=== PATIENT | female | born 1990 ===

== ENCOUNTER 2019-12-25 19:14 | Inpatient (IN) | payer BC ==
[2019-12-25] MEDS ORDERED: Misoprostol 200 MCG Tab PO PRN (22:19)
[2019-12-25] MEDS ORDERED: Sodium Chloride 0.9% 10 ML SDV IV PRN (22:19)
[2019-12-25] MEDS ORDERED: Water For Irrigation,Sterile 1,000 ML Container IRR PRN (22:19)
[2019-12-25] MEDS ORDERED: Nalbuphine 10 MG/1 ML Vial IVPUSH PRN (22:19)
[2019-12-25] MEDS ORDERED: Sodium Chloride 0.9% 10 ML Syringe FLUSH PRN (22:19)
[2019-12-25] MEDS ORDERED: Tranexamic Acid 1,000 MG in Sodium Chloride 0.9% 100 ML IV PRN (22:19)
[2019-12-25] MEDS ORDERED: Lidocaine 1% 50 ML MDV INJECT PRN (22:19)
[2019-12-25] MEDS ORDERED: Butorphanol 1 MG/ML SDV IVPUSH PRN (22:19)
[2019-12-25] MEDS ORDERED: Methylergonovine 0.2 MG/1 ML Amp IM PRN (22:19)
[2019-12-25] MEDS ORDERED: Sodium Chloride 0.9% 2.5 ML Syringe FLUSH PRN (22:19)
[2019-12-25] MEDS ORDERED: Carboprost Tromethamine 250 MCG/1 ML Amp IM PRN (22:19)
[2019-12-25] MEDS ORDERED: Oxytocin/0.9 % Sodium Chloride 30 UNIT/500 ML BAG IV SCH ×2 (22:30→23:30)
[2019-12-25] MEDS ORDERED: Ampicillin 2 GM in Sodium Chloride 0.9% 100 ML IV ONE (23:00)
[2019-12-25] MEDS ORDERED: Terbutaline 1 MG/ML SDV SUBCUT PRN (23:24)
[2019-12-25] MEDS ORDERED: Misoprostol 25 MCG (1/4 of 100 MCG) Tab VAG PRN (23:24)
[2019-12-25] MEDS: Lactated Ringers 1,000 ML IV SCH (23:39)
[2019-12-25 23:51] LABS: BLOOD UREA NITROGEN,BUN 7 mg/dL (7.0-18.0); CARBON DIOXIDE,CO2 19.9 mmol/L (21.0-32.0); CHLORIDE,CL 105 mmol/L (98-107); GLUCOSE RANDOM 84 mg/dL (74-106); SODIUM,NA 139 mmol/L (136-145)
[2019-12-26] MEDS: Ampicillin 1 GM in Sodium Chloride 0.9% 50 ML IV SCH ×4 (03:19→16:33)
[2019-12-26] MEDS: Misoprostol 25 MCG (1/4 of 100 MCG) Tab VAG PRN ×2 (03:20→07:20)
[2019-12-26] MEDS ORDERED: fentaNYL 100 MCG/2 ML SDV ONE (11:40)
[2019-12-26] MEDS ORDERED: Ropivacaine HCl/PF 100 ML ONE (11:41)
[2019-12-26] MEDS ORDERED: Ropivacaine 0.2% PF 2 MG/ML 20 ML SDV ONE (11:41)
[2019-12-26] MEDS: Lactated Ringers 1,000 ML IV SCH ×2 (12:16→18:58)
--- NOTE | 2019-12-26 12:40 | PCM.PREANE ---
Preanesthetic Assessment - Procedure Proposed Procedure: GYPSY - Anesthesia/Transfusion/Family Hx Anesthesia History: Prior Anesthesia Without Reaction Family History of Anesthesia Reaction: No Transfusion History: No Prior Transfusion(s) Intubation History: Intubation other than for Surgery in past - Review of Systems General: No Symptoms Pulmonary: No Symptoms Cardiovascular: No Symptoms, Other (HTN , on Labetalol Pre-op 162/98) Gastrointestinal: No Symptoms Neurological: No Symptoms Other: Reports: None - Physical Assessment NPO Status Date: 12/26/19 NPO Status Time: 12:00 Height: 1.7 m Weight: 106.594 kg ASA Class: 3 Mental Status: Alert & Oriented x3 Airway Class: Mallampati = 2 Dentition: Reports: Normal Dentition Thyro-Mental Finger Breadths: 3 Mouth Opening Finger Breadths: 3 ROM/Head Extension: Full Lungs: Clear to Auscultation Cardiovascular: Regular Rate - Lab Values: Laboratory Last Values WBC 10.67 K/uL (4.0-11.0) 12/25/19 23:00 RBC 3.96 M/uL (4.30-5.90) L 12/25/19 23:00 Hgb 12.3 g/dL (12.0-16.0) 12/25/19 23:00 Hct 35.3 % (36.0-46.0) L 12/25/19 23:00 MCV 89.1 fL (80.0-98.0) 12/25/19 23:00 MCH 31.1 pg (27.0-32.0) 12/25/19 23:00 MCHC 34.8 g/dL (31.0-37.0) 12/25/19 23:00 RDW Std Deviation 41.6 fl (28.0-62.0) 12/25/19 23:00 RDW Coeff of Sierra 13 % (11.0-15.0) 12/25/19 23:00 Plt Count 198 K/uL (150-400) 12/25/19 23:00 MPV 11.80 fL (7.40-12.00) 12/25/19 23:00 Nucleated RBC % 0.0 /100WBC 12/25/19 23:00 Nucleated RBCs # 0 K/uL 12/25/19 23:00 Sodium 139 mmol/L (136-145) 12/25/19 23:00 Potassium 4.0 mmol/L (3.5-5.1) 12/25/19 23:00 Chloride 105 mmol/L (98-107) 12/25/19 23:00 Carbon Dioxide 19.9 mmol/L (21.0-32.0) L 12/25/19 23:00 BUN 7 mg/dL (7.0-18.0) 12/25/19 23:00 Creatinine 0.4 mg/dL (0.6-1.0) L 12/25/19 23:00 Est Cr Clr Drug Dosing 205.44 mL/min 12/25/19 23:00 Estimated GFR (MDRD) > 60.0 ml/min 12/25/19 23:00 Glucose 84 mg/dL (74-106) 12/25/19 23:00 Calcium 8.7 mg/dL (8.5-10.1) 12/25/19 23:00 Total Bilirubin 0.8 mg/dL (0.2-1.0) 12/25/19 23:00 AST 11 IU/L (15-37) L 12/25/19 23:00 ALT 15 IU/L (14-63) 12/25/19 23:00 Alkaline Phosphatase 150 U/L (46-116) H 12/25/19 23:00 Total Protein 6.1 g/dL (6.4-8.2) L 12/25/19 23:00 Albumin 3.1 g/dL (3.4-5.0) L 12/25/19 23:00 Globulin 3.0 g/dL (2.6-4.0) 12/25/19 23:00 Albumin/Globulin Ratio 1.0 (0.9-1.6) 12/25/19 23:00 Ur Random Creatinine 61.4 mg/dL 12/25/19 22:45 U Random Total Protein 9.0 mg/dL (<11.9) 12/25/19 22:45 Protein/Creatinin Ratio 0.1 12/25/19 22:45 COVID-19 (MARYJANE) NEGATIVE (NEGATIVE) 12/25/19 23:05 Blood Type A POSITIVE 12/25/19 23:00 Antibody Screen NEGATIVE 12/25/19 23:00 - Allergies Allergies/Adverse Reactions: Allergies Allergy/AdvReac Type Severity Reaction Status Date / Time morphine Allergy Intermediate Other Verified 10/25/19 12:04 hydromorphone [From Dilaudid] Allergy Other Verified 11/26/19 17:22 - Blood Blood Available: No Product(s) Available: None - Anesthesia Plan Pre-Op Medication Ordered: None - Acknowledgements Anesthesia Type Planned: Epidural Pt an Appropriate Candidate for the Planned Anesthesia: Yes Alternatives and Risks of Anesthesia Discussed w Pt/Guardian: Yes Pt/Guardian Understands and Agrees with Anesthesia Plan: Yes Additional Comments: Active labor, 3 cm dilated, pain 3/10. Will start pitocin after GYPSY. BP 162/98. Discussed, ? answered, permit signed, wishes to proceed. PreAnesthesia Questionnaire Gastrointestinal History: Reports: None [employer]OUNT[employer] History: Reports: Polycystic Ovaries, - Past Surgical History GI Surgical History: Reports: Other (See Below) Other GI Surgeries/Procedures: Gastric by-pass 2017 - SUBSTANCE USE Smoking Status *Q: Never Smoker Second Hand Smoke Exposure: No Recreational Drug Use History: No - HOME MEDS Home Medications: Home Meds Ascorbic Acid [Vitamin C] 1 tab PO DAILY 10/25/19 [History] Aspirin [Baron Chewable Aspirin] 81 mg PO DAILY 10/25/19 [History] Calcium Carbonate [Calcium] 1 tab PO DAILY 10/25/19 [History] Ferrous Sulfate [Iron] 325 mg PO DAILY 10/25/19 [History] Vit No.124/Iron/Folic [ Vitamin Tablet] 1 tab PO DAILY 10/25/19 [History] Hydrocodone/Acetaminophen [[place] 5-325 Tablet] 1 each PO Q6H PRN #10 tablet 11/26/19 [Rx] Labetalol [Normodyne] 1 tab PO BID 11/26/19 [History] Ondansetron [Zofran ODT] 4 mg PO Q6H PRN #20 tab.dis 11/26/19 [Rx] - CURRENT (IN HOUSE) MEDS Current Meds: Current Medications Butorphanol Tartrate (Stadol) 1 mg IVPUSH Q1H PRN PRN Reason: Pain Carboprost Tromethamine (Hemabate Ds) 250 mcg IM ASDIRECTED PRN PRN Reason: Post Hemorrhage Oxytocin/Sodium Chloride (Oxytocin 30 Unit/500 Ml-Ns) 30 unit in 500 mls @ 500 mls/hr IV TITRATE [facility] Tranexamic Acid 1,000 mg/ (Sodium Chloride) 110 mls @ 660 mls/hr IV ONETIME PRN PRN Reason: Bleeding Lactated Ringer's (Ringers, Lactated) 1,000 mls @ 150 mls/hr IV ASDIRECTED [facility] Last Admin: 12/26/19 12:16 Dose: 500 mls/hr Documented by: Oxytocin/Sodium Chloride (Oxytocin 30 Unit/500 Ml-Ns) 30 unit in 500 mls @ 2 mls/hr IV TITRATE [facility]; Protocol Ampicillin Sodium 1 gm/ Sodium (Chloride) 50 mls @ 100 mls/hr IV Q4H [facility] Last Admin: 12/26/19 12:22 Dose: 100 mls/hr Documented by: Lidocaine HCl (Xylocaine 1%) 50 ml INJECT ONETIME PRN PRN Reason: Laceration repair Methylergonovine Maleate (Methergine) 0.2 mg IM ASDIRECTED PRN PRN Reason: Post Hemorrhage Misoprostol (Cytotec) 200 mcg PO ONETIME PRN PRN Reason: Post Hemorrhage Misoprostol (Cytotec) 25 mcg VAG ONETIME PRN PRN Reason: Cervical Ripening Last Admin: 12/25/19 23:40 Dose: 25 mcg Documented by: Misoprostol (Cytotec) 25 mcg VAG Q4H PRN PRN Reason: Cervical Ripening Last Admin: 12/26/19 07:20 Dose: 25 mcg Documented by: Nalbuphine HCl (Nubain) 10 mg IVPUSH Q1H PRN PRN Reason: Pain (severe 7-10) Sodium Chloride (Saline Flush) 10 ml FLUSH ASDIRECTED PRN PRN Reason: Keep Vein Open Sodium Chloride (Saline Flush) 2.5 ml FLUSH ASDIRECTED PRN PRN Reason: Keep Vein Open Sodium Chloride (Normal Saline) 10 ml IV ASDIRECTED PRN PRN Reason: IV Use Sterile Water (Sterile Water For Irrigation) 1,000 ml IRR ASDIRECTED PRN PRN Reason: delivery Terbutaline Sulfate (Brethine) 0.25 mg SUBCUT ASDIRECTED PRN PRN Reason: Tacysystole Discontinued Medications Fentanyl (Sublimaze) Confirm Administered Dose 100 mcg .ROUTE .STK-MED ONE Stop: 12/26/19 11:41 Ampicillin Sodium 2 gm/ Sodium (Chloride) 100 mls @ 200 mls/hr IV ONETIME ONE Stop: 12/25/19 23:29 Last Admin: 12/25/19 23:39 Dose: 200 mls/hr Documented by: Ropivacaine (Naropin 0.2%) Confirm Administered Dose 100 mls @ as directed .ROUTE .STK-MED ONE Stop: 12/26/19 11:42 Ropivacaine (Naropin 0.2%) Confirm Administered Dose 20 ml .ROUTE .STK-MED ONE Stop: 12/26/19 11:42
[2019-12-26] MEDS ORDERED: Lanolin 100% Cream 7 GM Tube TOP PRN (19:46)
[2019-12-26] MEDS ORDERED: Ibuprofen 800 MG Tab PO PRN (19:46)
[2019-12-26] MEDS ORDERED: Benzocaine/Menthol 20%-0.5% Spray 78 GM Cannister TOP PRN (19:46)
[2019-12-26] MEDS ORDERED: Witch Hazel Medicated Pads 40/Jar TOP PRN (19:46)
[2019-12-26] MEDS ORDERED: Docusate Sodium 100 MG Cap PO PRN (19:46)
[2019-12-26] MEDS ORDERED: oxyCODONE 5 MG Tab PO PRN (19:46)
[2019-12-26] MEDS ORDERED: Bisacodyl 10 MG Supp RECTAL PRN (19:46)
--- NOTE | 2019-12-26 19:50 | PCM.DEL ---
<Donovan Conklin - Last Filed: 12/26/19 19:42> L & D Note - General Info Date of Service: 12/26/19 - Delivery Note Labor: Augmented by ARM, Augmented by Oxytocin Cervical Ripening Method: Misoprostil Delivery Outcome: Livebirth Delivery Method: Spontaneous Vaginal Delivery-Single Delivery Mode: Spontaneous Presentation: Left Occiput Anterior (JACK) Nuchal Cord: None Anesthesia Type: Epidural Episiotomy Type: None Laceration: 2nd Degree Suture type: Vicryl Suture size: 2-0 Placenta: Intact, Spontaneous Cord: 3 Vessels Estimated Blood Loss: 500 Resuscitation Needed: No : Bulb Syringe, Stimulated, Warmed, [place] Used, Warmer Used Score 1 min: 8 Score 5 min: 9 Delivery Comments (Free Text/Narrative):: Liveborn male born at 1912, weighing 3360, apgars 8 and 9 - General Info Date of Service: 12/26/19 - Patient Data Weight - Most Recent: 106.594 kg Lab Results Last 24 Hours: Laboratory Results - last 24 hr 12/25/19 12/25/19 12/25/19 Range/Units 22:45 23:00 23:00 WBC 10.67 (4.0-11.0) K/uL RBC 3.96 L (4.30-5.90) M/uL Hgb 12.3 (12.0-16.0) g/dL Hct 35.3 L (36.0-46.0) % MCV 89.1 (80.0-98.0) fL MCH 31.1 (27.0-32.0) pg MCHC 34.8 (31.0-37.0) g/dL RDW Std Deviation 41.6 (28.0-62.0) fl RDW Coeff of [place] 13 (11.0-15.0) % Plt Count 198 (150-400) K/uL MPV 11.80 (7.40-12.00) fL Nucleated RBC % 0.0 /100WBC Nucleated RBCs # 0 K/uL Sodium 139 (136-145) mmol/L Potassium 4.0 (3.5-5.1) mmol/L Chloride 105 (98-107) mmol/L Carbon Dioxide 19.9 L (21.0-32.0) mmol/L BUN 7 (7.0-18.0) mg/dL Creatinine 0.4 L (0.6-1.0) mg/dL Est Cr Clr Drug Dosing 205.44 mL/min Estimated GFR (MDRD) > 60.0 ml/min Glucose 84 (74-106) mg/dL Calcium 8.7 (8.5-10.1) mg/dL Total Bilirubin 0.8 (0.2-1.0) mg/dL AST 11 L (15-37) IU/L ALT 15 (14-63) IU/L Alkaline Phosphatase 150 H (46-116) U/L Total Protein 6.1 L (6.4-8.2) g/dL Albumin 3.1 L (3.4-5.0) g/dL Globulin 3.0 (2.6-4.0) g/dL Albumin/Globulin Ratio 1.0 (0.9-1.6) Ur Random Creatinine 61.4 mg/dL U Random Total Protein 9.0 (<11.9) mg/dL Protein/Creatinin Ratio 0.1 COVID-19 (MARYJANE) (NEGATIVE) Blood Type Antibody Screen 12/25/19 12/25/19 Range/Units 23:00 23:05 WBC (4.0-11.0) K/uL RBC (4.30-5.90) M/uL Hgb (12.0-16.0) g/dL Hct (36.0-46.0) % MCV (80.0-98.0) fL MCH (27.0-32.0) pg MCHC (31.0-37.0) g/dL RDW Std Deviation (28.0-62.0) fl RDW Coeff of [place] (11.0-15.0) % Plt Count (150-400) K/uL MPV (7.40-12.00) fL Nucleated RBC % /100WBC Nucleated RBCs # K/uL Sodium (136-145) mmol/L Potassium (3.5-5.1) mmol/L Chloride (98-107) mmol/L Carbon Dioxide (21.0-32.0) mmol/L BUN (7.0-18.0) mg/dL Creatinine (0.6-1.0) mg/dL Est Cr Clr Drug Dosing mL/min Estimated GFR (MDRD) ml/min Glucose (74-106) mg/dL Calcium (8.5-10.1) mg/dL Total Bilirubin (0.2-1.0) mg/dL AST (15-37) IU/L ALT (14-63) IU/L Alkaline Phosphatase (46-116) U/L Total Protein (6.4-8.2) g/dL Albumin (3.4-5.0) g/dL Globulin (2.6-4.0) g/dL Albumin/Globulin Ratio (0.9-1.6) Ur Random Creatinine mg/dL U Random Total Protein (<11.9) mg/dL Protein/Creatinin Ratio COVID-19 (MARYJANE) NEGATIVE (NEGATIVE) Blood Type A POSITIVE Antibody Screen NEGATIVE Med Orders - Current: Current Medications Butorphanol Tartrate (Stadol) 1 mg IVPUSH Q1H PRN PRN Reason: Pain Carboprost Tromethamine (Hemabate Ds) 250 mcg IM ASDIRECTED PRN PRN Reason: Post Hemorrhage Oxytocin/Sodium Chloride (Oxytocin 30 Unit/500 Ml-Ns) 30 unit in 500 mls @ 500 mls/hr IV TITRATE [facility] Tranexamic Acid 1,000 mg/ (Sodium Chloride) 110 mls @ 660 mls/hr IV ONETIME PRN PRN Reason: Bleeding Lactated Ringer's (Ringers, Lactated) 1,000 mls @ 150 mls/hr IV ASDIRECTED [facility] Last Admin: 12/26/19 18:58 Dose: 150 mls/hr Documented by: Oxytocin/Sodium Chloride (Oxytocin 30 Unit/500 Ml-Ns) 30 unit in 500 mls @ 2 mls/hr IV TITRATE [facility]; Protocol Last Titration: 12/26/19 17:12 Dose: 10 munits/min, 10 mls/hr Documented by: Ampicillin Sodium 1 gm/ Sodium (Chloride) 50 mls @ 100 mls/hr IV Q4H [facility] Last Admin: 12/26/19 16:33 Dose: 100 mls/hr Documented by: Lidocaine HCl (Xylocaine 1%) 50 ml INJECT ONETIME PRN PRN Reason: Laceration repair Methylergonovine Maleate (Methergine) 0.2 mg IM ASDIRECTED PRN PRN Reason: Post Hemorrhage Misoprostol (Cytotec) 200 mcg PO ONETIME PRN PRN Reason: Post Hemorrhage Misoprostol (Cytotec) 25 mcg VAG ONETIME PRN PRN Reason: Cervical Ripening Last Admin: 12/25/19 23:40 Dose: 25 mcg Documented by: Misoprostol (Cytotec) 25 mcg VAG Q4H PRN PRN Reason: Cervical Ripening Last Admin: 12/26/19 07:20 Dose: 25 mcg Documented by: Nalbuphine HCl (Nubain) 10 mg IVPUSH Q1H PRN PRN Reason: Pain (severe 7-10) Sodium Chloride (Saline Flush) 10 ml FLUSH ASDIRECTED PRN PRN Reason: Keep Vein Open Sodium Chloride (Saline Flush) 2.5 ml FLUSH ASDIRECTED PRN PRN Reason: Keep Vein Open Sodium Chloride (Normal Saline) 10 ml IV ASDIRECTED PRN PRN Reason: IV Use Sterile Water (Sterile Water For Irrigation) 1,000 ml IRR ASDIRECTED PRN PRN Reason: delivery Terbutaline Sulfate (Brethine) 0.25 mg SUBCUT ASDIRECTED PRN PRN Reason: Tacysystole Discontinued Medications Fentanyl (Sublimaze) Confirm Administered Dose 100 mcg .ROUTE .STK-MED ONE Stop: 12/26/19 11:41 Ampicillin Sodium 2 gm/ Sodium (Chloride) 100 mls @ 200 mls/hr IV ONETIME ONE Stop: 12/25/19 23:29 Last Admin: 12/25/19 23:39 Dose: 200 mls/hr Documented by: Ropivacaine (Naropin 0.2%) Confirm Administered Dose 100 mls @ as directed .ROUTE .STK-MED ONE Stop: 12/26/19 11:42 Ropivacaine (Naropin 0.2%) Confirm Administered Dose 20 ml .ROUTE .STK-MED ONE Stop: 12/26/19 11:42 - Problem List & Annotations (1) Vaginal delivery SNOMED Code(s): 090788404 Code(s): O80 - ENCOUNTER FOR FULL-TERM UNCOMPLICATED DELIVERY Status: Acute Current Visit: Yes - Problem List Review Problem List Initiated/Reviewed/Updated: Yes - Assessment Assessment:: 29yo s/p . complicated by GBS+, gestational hypertension, and hx of gastric bypass. - Plan Plan:: Admit to for routine care Monitor lochia Encourage <Radha Blanco - Last Filed: 12/26/19 19:56> L & D Note - General Info Mother's Due Date: 01/14/20 - Delivery Note Laceration: Labial (right) - Patient Data Lab Results Last 24 Hours: Laboratory Results - last 24 hr 12/25/19 12/25/19 12/25/19 Range/Units 22:45 23:00 23:00 WBC 10.67 (4.0-11.0) K/uL RBC 3.96 L (4.30-5.90) M/uL Hgb 12.3 (12.0-16.0) g/dL Hct 35.3 L (36.0-46.0) % MCV 89.1 (80.0-98.0) fL MCH 31.1 (27.0-32.0) pg MCHC 34.8 (31.0-37.0) g/dL RDW Std Deviation 41.6 (28.0-62.0) fl RDW Coeff of [place] 13 (11.0-15.0) % Plt Count 198 (150-400) K/uL MPV 11.80 (7.40-12.00) fL Nucleated RBC % 0.0 /100WBC Nucleated RBCs # 0 K/uL Sodium 139 (136-145) mmol/L Potassium 4.0 (3.5-5.1) mmol/L Chloride 105 (98-107) mmol/L Carbon Dioxide 19.9 L (21.0-32.0) mmol/L BUN 7 (7.0-18.0) mg/dL Creatinine 0.4 L (0.6-1.0) mg/dL Est Cr Clr Drug Dosing 205.44 mL/min Estimated GFR (MDRD) > 60.0 ml/min Glucose 84 (74-106) mg/dL Calcium 8.7 (8.5-10.1) mg/dL Total Bilirubin 0.8 (0.2-1.0) mg/dL AST 11 L (15-37) IU/L ALT 15 (14-63) IU/L Alkaline Phosphatase 150 H (46-116) U/L Total Protein 6.1 L (6.4-8.2) g/dL Albumin 3.1 L (3.4-5.0) g/dL Globulin 3.0 (2.6-4.0) g/dL Albumin/Globulin Ratio 1.0 (0.9-1.6) Ur Random Creatinine 61.4 mg/dL U Random Total Protein 9.0 (<11.9) mg/dL Protein/Creatinin Ratio 0.1 COVID-19 (MARYJANE) (NEGATIVE) Blood Type Antibody Screen 12/25/19 12/25/19 Range/Units 23:00 23:05 WBC (4.0-11.0) K/uL RBC (4.30-5.90) M/uL Hgb (12.0-16.0) g/dL Hct (36.0-46.0) % MCV (80.0-98.0) fL MCH (27.0-32.0) pg MCHC (31.0-37.0) g/dL RDW Std Deviation (28.0-62.0) fl RDW Coeff of [place] (11.0-15.0) % Plt Count (150-400) K/uL MPV (7.40-12.00) fL Nucleated RBC % /100WBC Nucleated RBCs # K/uL Sodium (136-145) mmol/L Potassium (3.5-5.1) mmol/L Chloride (98-107) mmol/L Carbon Dioxide (21.0-32.0) mmol/L BUN (7.0-18.0) mg/dL Creatinine (0.6-1.0) mg/dL Est Cr Clr Drug Dosing mL/min Estimated GFR (MDRD) ml/min Glucose (74-106) mg/dL Calcium (8.5-10.1) mg/dL Total Bilirubin (0.2-1.0) mg/dL AST (15-37) IU/L ALT (14-63) IU/L Alkaline Phosphatase (46-116) U/L Total Protein (6.4-8.2) g/dL Albumin (3.4-5.0) g/dL Globulin (2.6-4.0) g/dL Albumin/Globulin Ratio (0.9-1.6) Ur Random Creatinine mg/dL U Random Total Protein (<11.9) mg/dL Protein/Creatinin Ratio COVID-19 (MARYJANE) NEGATIVE (NEGATIVE) Blood Type A POSITIVE Antibody Screen NEGATIVE Med Orders - Current: Current Medications Acetaminophen (Tylenol Extra Strength) 1,000 mg PO Q6H PRN PRN Reason: Pain Benzocaine/Menthol (Dermoplast Pain Relief 20%-0.5% [place]) 78 gm TOP ASDIRECTED PRN PRN Reason: Perineal Comfort Measure Bisacodyl (Dulcolax) 10 mg RECTAL ONETIME PRN PRN Reason: Constipation Butorphanol Tartrate (Stadol) 1 mg IVPUSH Q1H PRN PRN Reason: Pain Carboprost Tromethamine (Hemabate Ds) 250 mcg IM ASDIRECTED PRN PRN Reason: Post Hemorrhage Docusate Sodium (Colace) 100 mg PO BID PRN PRN Reason: Constipation Emollient Ointment (Lansinoh Hpa) 0 gm TOP ASDIRECTED PRN PRN Reason: Sore Nipples Oxytocin/Sodium Chloride (Oxytocin 30 Unit/500 Ml-Ns) 30 unit in 500 mls @ 500 mls/hr IV TITRATE [facility] Tranexamic Acid 1,000 mg/ (Sodium Chloride) 110 mls @ 660 mls/hr IV ONETIME PRN PRN Reason: Bleeding Lactated Ringer's (Ringers, Lactated) 1,000 mls @ 150 mls/hr IV ASDIRECTED [facility] Last Admin: 12/26/19 18:58 Dose: 150 mls/hr Documented by: Oxytocin/Sodium Chloride (Oxytocin 30 Unit/500 Ml-Ns) 30 unit in 500 mls @ 2 mls/hr IV TITRATE [facility]; Protocol Last Titration: 12/26/19 17:12 Dose: 10 munits/min, 10 mls/hr Documented by: Ampicillin Sodium 1 gm/ Sodium (Chloride) 50 mls @ 100 mls/hr IV Q4H [facility] Last Admin: 12/26/19 16:33 Dose: 100 mls/hr Documented by: Ibuprofen (Motrin) 800 mg PO Q8H PRN PRN Reason: Pain Labetalol HCl (Normodyne) 200 mg PO BID [facility] Lidocaine HCl (Xylocaine 1%) 50 ml INJECT ONETIME PRN PRN Reason: Laceration repair Methylergonovine Maleate (Methergine) 0.2 mg IM ASDIRECTED PRN PRN Reason: Post Hemorrhage Misoprostol (Cytotec) 200 mcg PO ONETIME PRN PRN Reason: Post Hemorrhage Misoprostol (Cytotec) 25 mcg VAG ONETIME PRN PRN Reason: Cervical Ripening Last Admin: 12/25/19 23:40 Dose: 25 mcg Documented by: Misoprostol (Cytotec) 25 mcg VAG Q4H PRN PRN Reason: Cervical Ripening Last Admin: 12/26/19 07:20 Dose: 25 mcg Documented by: Nalbuphine HCl (Nubain) 10 mg IVPUSH Q1H PRN PRN Reason: Pain (severe 7-10) Oxycodone HCl (Oxycodone) 5 mg PO Q2H PRN PRN Reason: Pain Sodium Chloride (Saline Flush) 10 ml FLUSH ASDIRECTED PRN PRN Reason: Keep Vein Open Sodium Chloride (Saline Flush) 2.5 ml FLUSH ASDIRECTED PRN PRN Reason: Keep Vein Open Sodium Chloride (Normal Saline) 10 ml IV ASDIRECTED PRN PRN Reason: IV Use Sterile Water (Sterile Water For Irrigation) 1,000 ml IRR ASDIRECTED PRN PRN Reason: delivery Terbutaline Sulfate (Brethine) 0.25 mg SUBCUT ASDIRECTED PRN PRN Reason: Tacysystole [place] (Tucks) 1 pad TOP ASDIRECTED PRN PRN Reason: comfort care Discontinued Medications Fentanyl (Sublimaze) Confirm Administered Dose 100 mcg .ROUTE .STK-MED ONE Stop: 12/26/19 11:41 Ampicillin Sodium 2 gm/ Sodium (Chloride) 100 mls @ 200 mls/hr IV ONETIME ONE Stop: 12/25/19 23:29 Last Admin: 12/25/19 23:39 Dose: 200 mls/hr Documented by: Ropivacaine (Naropin 0.2%) Confirm Administered Dose 100 mls @ as directed .ROUTE .STK-MED ONE Stop: 12/26/19 11:42 Ropivacaine (Naropin 0.2%) Confirm Administered Dose 20 ml .ROUTE .STK-MED ONE Stop: 12/26/19 11:42 - Problem List & Annotations (1) Chronic hypertension affecting SNOMED Code(s): 92193988 Code(s): O10.919 - UNSP PRE-EXISTING HTN COMP , UNSP TRIMESTER Status: Acute Current Visit: Yes (2) History of gastric bypass SNOMED Code(s): 698244850 Code(s): Z98.84 - BARIATRIC SURGERY STATUS Status: Acute Current Visit: Yes (3) Vaginal delivery SNOMED Code(s): 240566216 Code(s): O80 - ENCOUNTER FOR FULL-TERM UNCOMPLICATED DELIVERY Status: Acute Current Visit: Yes - Problem List Review Problem List Initiated/Reviewed/Updated: Yes - My Orders Last 24 Hours: My Active Orders 12/25/19 22:19 Butorphanol [Stadol] 1 mg IVPUSH Q1H PRN Carboprost Tromethamine [Hemabate DS] 250 mcg IM ASDIRECTED PRN Lidocaine 1% [Xylocaine 1%] 50 ml INJECT ONETIME PRN Methylergonovine [Methergine] 0.2 mg IM ASDIRECTED PRN Nalbuphine [Nubain] 10 mg IVPUSH Q1H PRN Sodium Chloride 0.9% [Normal Saline] 10 ml IV ASDIRECTED PRN Sodium Chloride 0.9% [Saline Flush] 10 ml FLUSH ASDIRECTED PRN Sodium Chloride 0.9% [Saline Flush] 2.5 ml FLUSH ASDIRECTED PRN Tranexamic Acid [Cyklokapron] 1,000 mg Sodium Chloride 0.9% [Normal Saline] 100 ml IV ONETIME Water For Irrigation,Sterile [Sterile Water for Irrigation] 1,000 ml IRR ASDIRECTED PRN miSOPROStoL [Cytotec] 200 mcg PO ONETIME PRN Resuscitation Status Routine 12/25/19 22:21 Patient Status [ADT] Routine Heart Tones [RC] CONTINUOUS Non Stress Test [RC] PER UNIT ROUTINE May Shower [RC] ASDIRECTED Notify Provider [RC] PRN Up ad Anya [RC] ASDIRECTED Vaginal Exam [RC] PRN Vital Signs [RC] PER UNIT ROUTINE Scalp Electrode [WOMSER] Per Unit Routine Peripheral IV Insertion Adult [OM.PC] Routine 12/25/19 22:30 Lactated Ringers [Ringers, Lactated] 1,000 ml IV ASDIRECTED Oxytocin/0.9 % Sodium Chloride [Oxytocin 30 Unit/500 ML-NS] 30 unit in 500 ml IV TITRATE 12/25/19 22:45 URIC ACID, URINE Stat 12/25/19 23:00 RPR (SYPHILIS SERO) W/ RFLX [REF] Routine 12/25/19 23:24 Terbutaline [Brethine] 0.25 mg SUBCUT ASDIRECTED PRN miSOPROStoL [Cytotec] 25 mcg VAG ONETIME PRN miSOPROStoL [Cytotec] 25 mcg VAG Q4H PRN 12/25/19 23:25 Communication Order [RC] ASDIRECTED Communication Order [RC] ASDIRECTED Communication Order [RC] ASDIRECTED Notify Provider [RC] PRN Notify Provider [RC] PRN Notify Provider [RC] STAT 12/25/19 23:30 Oxytocin/0.9 % Sodium Chloride [Oxytocin 30 Unit/500 ML-NS] 30 unit in 500 ml IV TITRATE Medication Administration Instruction [OM.PC] Q3H 12/26/19 03:00 Ampicillin 1 gm Sodium Chloride 0.9% [Normal Saline] 50 ml IV Q4H 12/26/19 Dinner Regular Diet [DIET] 12/26/19 19:46 Patient Status [ADT] Routine May Shower [RC] ASDIRECTED Notify Provider Vital Signs [RC] ASDIRECTED Up ad Anya [RC] ASDIRECTED Vital Signs [RC] PER UNIT ROUTINE Acetaminophen [Tylenol Extra Strength] 1,000 mg PO Q6H PRN Benzocaine/Menthol [Dermoplast Pain Relief 20%-0.5% [place]] 78 gm TOP ASDI RECTED PRN Docusate Sodium [Colace] 100 mg PO BID PRN Ibuprofen [Motrin] 800 mg PO Q8H PRN Lanolin [Lansinoh HPA] See Dose Instructions TOP ASDIRECTED PRN bisacodyL [Dulcolax] 10 mg RECTAL ONETIME PRN oxyCODONE 5 mg PO Q2H PRN witch Kay [Tucks] 1 pad TOP ASDIRECTED PRN Assess Lochia [WOMSER] Per Unit Routine Assess Uterine Involution [WOMSER] Per Unit Routine Breast Pump [WOMSER] Per Unit Routine Ice Therapy [OM.PC] Per Unit Routine Perineal Care [OM.PC] Per Unit Routine Peripheral IV Discontinue [OM.PC] Routine Sitz Bath [OM.PC] Per Unit Routine 12/26/19 19:47 Cooling Warming Measures [RC] ASDIRECTED 12/26/19 21:00 Labetalol [Normodyne] 200 mg PO BID 12/27/19 05:11 HEMOGLOBIN/HEMATOCRIT,HH [HEME] Timed - Assessment Assessment:: History of chronic hypertension, on Labetalol 200mg BID - Plan Plan:: Agree with the above. Continue Labetalol for chronic hypertension. Encourage . Monitor lochia.
--- NOTE | 2019-12-26 20:44 | OR ---
SURGEON: Radha Blanco MD DATE OF PROCEDURE: 12/26/2019 PREOPERATIVE DIAGNOSES: 1. A 29-year-old, G1, P0, at 37 weeks and 1 days gestation. 2. Induction of labor. 3. Chronic hypertension, on Labetalol with worsening control. 4. History of Natasha-en-Y gastric bypass and abdominoplasty. 5. Group B Streptococcus positive. POSTOPERATIVE DIAGNOSES: 1. A 29-year-old, G1, P 1-0-0-1, status post spontaneous vaginal delivery at 37 weeks and 2 days gestation. 2. Chronic hypertension, on Labetalol with worsening control. 3. History of Natasha-en-Y gastric bypass and abdominoplasty. 4. Group B Streptococcus positive. PROCEDURE: Spontaneous vaginal delivery. PRIMARY SURGEON: Radha Blanco MD MANAGER ETHICS: Donovan Conklin, medical student. ESTIMATED BLOOD LOSS: 500 mL. ANESTHESIA: Epidural. FINDINGS: Live male in cephalic presentation. score of 8 and 9 at one and five minutes respectively. Weight 3360 g. Placenta intact and with 3-vessel cord. Right labial laceration. INDICATIONS: This is a 29-year-old, G1, P0, who presented at 37 weeks and 1 day's gestation for planned induction of labor due to chronic hypertension. Over the last several weeks, chronic hypertension has worsened, and labetalol was begun and increased in dose. Upon presentation, preeclampsia labs were obtained and were normal. She was begun on Cytotec for cervical ripening. Ampicillin was started for GBS prophylaxis. She progressed to 4 cm dilated and received an epidural. Pitocin was begun. At approximately 5 cm dilated, she underwent artificial rupture of membranes with clear fluid noted. She progressed to complete cervical dilation and began pushing. I was called to the room. DESCRIPTION OF PROCEDURE: I arrived to the room with station at +4 station. Over the next several contractions, she pushed and delivered a live male . The head was delivered followed quickly by the shoulders and the remainder of the body. The infant was placed on the maternal abdomen. After approximately 60 seconds, the cord was clamped and cut. Perineum was inspected and a right labial laceration was noted. While awaiting the delivery of the placenta, this was repaired to anatomy and hemostasis with 2-0 Vicryl. The placenta then delivered intact and with 3-vessel cord via the Hassan-Onofre maneuver. The fundus was firm below the umbilicus, minimal bleeding. The patient and infant tolerated the delivery well. [id number] / MODL /[id number] MTDD
[2019-12-26] MEDS ORDERED: Labetalol 100 MG Tab PO SCH (21:00)
[2019-12-26] MEDS: Acetaminophen 500 MG Tab PO PRN (21:55)
[2019-12-27] MEDS: Acetaminophen 500 MG Tab PO PRN ×3 (04:28→16:44)
--- NOTE | 2019-12-27 07:30 | PCM48HPAN ---
Post Anesthesia Note - EVALUATION WITHIN 48HRS OF ANESTHETIC Vital Signs in Normal Range: Yes Patient Participated in Evaluation: Yes Respiratory Function Stable: Yes Airway Patent: Yes Cardiovascular Function Stable: Yes Hydration Status Stable: Yes Pain Control Satisfactory: Yes Nausea and Vomiting Control Satisfactory: Yes Mental Status Recovered: Yes Vital Signs: Last Vital Signs Temp 36.6 C 12/27/19 04:00 Pulse 80 12/27/19 04:00 Resp 17 12/27/19 04:00 BP 125/78 12/27/19 04:00 Pulse Ox 95 12/27/19 04:00
--- NOTE | 2019-12-27 07:36 | PCM.PNPP ---
- General Info Date of Service: 12/27/19 Subjective Update: Dizziness has improved, no symptoms currently. Functional Status: Reports: Pain Controlled, Tolerating Diet, Ambulating, Urinating - Review of Systems General: Reports: No Symptoms HEENT: Reports: No Symptoms Pulmonary: Reports: No Symptoms Cardiovascular: Reports: No Symptoms Gastrointestinal: Reports: No Symptoms Genitourinary: Reports: No Symptoms Musculoskeletal: Reports: No Symptoms Skin: Reports: No Symptoms Neurological: Reports: No Symptoms Psychiatric: Reports: No Symptoms - Patient Data Vital Signs - Most Recent: Last Vital Signs Temp 36.6 C 12/27/19 04:00 Pulse 80 12/27/19 04:00 Resp 17 12/27/19 04:00 BP 125/78 12/27/19 04:00 Pulse Ox 95 12/27/19 04:00 Weight - Most Recent: 106.594 kg Lab Results - Last 24 Hours: Laboratory Results - last 24 hr 12/27/19 Range/Units 05:06 Hgb 9.6 L (12.0-16.0) g/dL Hct 28.2 L (36.0-46.0) % Med Orders - Current: Current Medications Acetaminophen (Tylenol Extra Strength) 1,000 mg PO Q6H PRN PRN Reason: Pain Last Admin: 12/27/19 04:28 Dose: 1,000 mg Documented by: Benzocaine/Menthol (Dermoplast Pain Relief 20%-0.5% [place]) 78 gm TOP ASDIRECTED PRN PRN Reason: Perineal Comfort Measure Last Admin: 12/26/19 20:46 Dose: 1 applic Documented by: Bisacodyl (Dulcolax) 10 mg RECTAL ONETIME PRN PRN Reason: Constipation Butorphanol Tartrate (Stadol) 1 mg IVPUSH Q1H PRN PRN Reason: Pain Carboprost Tromethamine (Hemabate Ds) 250 mcg IM ASDIRECTED PRN PRN Reason: Post Hemorrhage Docusate Sodium (Colace) 100 mg PO BID PRN PRN Reason: Constipation Emollient Ointment (Lansinoh Hpa) 0 gm TOP ASDIRECTED PRN PRN Reason: Sore Nipples Last Admin: 12/26/19 20:45 Dose: 1 applic Documented by: Oxytocin/Sodium Chloride (Oxytocin 30 Unit/500 Ml-Ns) 30 unit in 500 mls @ 500 mls/hr IV TITRATE DEMOND Tranexamic Acid 1,000 mg/ (Sodium Chloride) 110 mls @ 660 mls/hr IV ONETIME PRN PRN Reason: Bleeding Lactated Ringer's (Ringers, Lactated) 1,000 mls @ 150 mls/hr IV ASDIRECTED DEMOND Last Admin: 12/26/19 18:58 Dose: 150 mls/hr Documented by: Oxytocin/Sodium Chloride (Oxytocin 30 Unit/500 Ml-Ns) 30 unit in 500 mls @ 2 mls/hr IV TITRATE DEMOND; Protocol Last Titration: 12/26/19 17:12 Dose: 10 munits/min, 10 mls/hr Documented by: Ampicillin Sodium 1 gm/ Sodium (Chloride) 50 mls @ 100 mls/hr IV Q4H [facility] Last Admin: 12/26/19 16:33 Dose: 100 mls/hr Documented by: Ibuprofen (Motrin) 800 mg PO Q8H PRN PRN Reason: Pain Labetalol HCl (Normodyne) 100 mg PO BID [facility] Lidocaine HCl (Xylocaine 1%) 50 ml INJECT ONETIME PRN PRN Reason: Laceration repair Methylergonovine Maleate (Methergine) 0.2 mg IM ASDIRECTED PRN PRN Reason: Post Hemorrhage Misoprostol (Cytotec) 200 mcg PO ONETIME PRN PRN Reason: Post Hemorrhage Misoprostol (Cytotec) 25 mcg VAG ONETIME PRN PRN Reason: Cervical Ripening Last Admin: 12/25/19 23:40 Dose: 25 mcg Documented by: Misoprostol (Cytotec) 25 mcg VAG Q4H PRN PRN Reason: Cervical Ripening Last Admin: 12/26/19 07:20 Dose: 25 mcg Documented by: Nalbuphine HCl (Nubain) 10 mg IVPUSH Q1H PRN PRN Reason: Pain (severe 7-10) Oxycodone HCl (Oxycodone) 5 mg PO Q2H PRN PRN Reason: Pain Sodium Chloride (Saline Flush) 10 ml FLUSH ASDIRECTED PRN PRN Reason: Keep Vein Open Sodium Chloride (Saline Flush) 2.5 ml FLUSH ASDIRECTED PRN PRN Reason: Keep Vein Open Sodium Chloride (Normal Saline) 10 ml IV ASDIRECTED PRN PRN Reason: IV Use Sterile Water (Sterile Water For Irrigation) 1,000 ml IRR ASDIRECTED PRN PRN Reason: delivery Terbutaline Sulfate (Brethine) 0.25 mg SUBCUT ASDIRECTED PRN PRN Reason: Tacysystole Witch Johanna (Tucks) 1 pad TOP ASDIRECTED PRN PRN Reason: comfort care Last Admin: 12/26/19 20:46 Dose: 1 applic Documented by: Discontinued Medications Fentanyl (Sublimaze) Confirm Administered Dose 100 mcg .ROUTE .STK-MED ONE Stop: 12/26/19 11:41 Ampicillin Sodium 2 gm/ Sodium (Chloride) 100 mls @ 200 mls/hr IV ONETIME ONE Stop: 12/25/19 23:29 Last Admin: 12/25/19 23:39 Dose: 200 mls/hr Documented by: Ropivacaine (Naropin 0.2%) Confirm Administered Dose 100 mls @ as directed .ROUTE .STK-MED ONE Stop: 12/26/19 11:42 Labetalol HCl (Normodyne) 200 mg PO BID DEMOND Ropivacaine (Naropin 0.2%) Confirm Administered Dose 20 ml .ROUTE .STK-MED ONE Stop: 12/26/19 11:42 - Interaction Infant Disposition, : in Room with Family Infant Interaction: Holding Feeding: Breastfed Infant; Nursed Well Support Person: - Recovery Exam Fundal Tone: Firm Fundal Level: 1 Fingerbreadths Below Umbilicus Fundal Placement: Right Lochia Amount: Scant Lochia Color: Rubra/Red Other Perinuem Description: right labial tear, urethral tear Bladder Status: Voiding Urinary Elimination: Voided - Exam General: Alert, Oriented Neck: Supple Lungs: Normal Respiratory Effort GI/Abdominal Exam: Soft, Non-Tender, No Distention Extremities: Non-Tender, No Pedal Edema Skin: Warm, Dry, Intact Neurological: No New Focal Deficit Psy/Mental Status: Alert, Normal Affect, Normal Mood - Problem List & Annotations (1) Chronic hypertension affecting SNOMED Code(s): 93231743 Code(s): O10.919 - UNSP PRE-EXISTING HTN COMP , UNSP TRIMESTER Status: Acute Current Visit: Yes (2) History of gastric bypass SNOMED Code(s): 372456781 Code(s): Z98.84 - BARIATRIC SURGERY STATUS Status: Acute Current Visit: Yes (3) Vaginal delivery SNOMED Code(s): 872773423 Code(s): O80 - ENCOUNTER FOR FULL-TERM UNCOMPLICATED DELIVERY Status: Acute Current Visit: Yes - Problem List Review Problem List Initiated/Reviewed/Updated: Yes - My Orders Last 24 Hours: My Active Orders 12/26/19 Dinner Regular Diet [DIET] 12/26/19 19:46 Patient Status [ADT] Routine May Shower [RC] ASDIRECTED Notify Provider Vital Signs [RC] ASDIRECTED Up ad Anya [RC] ASDIRECTED Acetaminophen [Tylenol Extra Strength] 1,000 mg PO Q6H PRN Benzocaine/Menthol [Dermoplast Pain Relief 20%-0.5% [place]] 78 gm TOP ASDIRECTED PRN Docusate Sodium [Colace] 100 mg PO BID PRN Ibuprofen [Motrin] 800 mg PO Q8H PRN Lanolin [Lansinoh HPA] See Dose Instructions TOP ASDIRECTED PRN bisacodyL [Dulcolax] 10 mg RECTAL ONETIME PRN oxyCODONE 5 mg PO Q2H PRN witch Johanna [Tucks] 1 pad TOP ASDIRECTED PRN Assess Lochia [WOMSER] Per Unit Routine Assess Uterine Involution [WOMSER] Per Unit Routine Breast Pump [WOMSER] Per Unit Routine Ice Therapy [OM.PC] Per Unit Routine Perineal Care [OM.PC] Per Unit Routine Peripheral IV Discontinue [OM.PC] Routine Sitz Bath [OM.PC] Per Unit Routine 12/27/19 07:30 Ready for Discharge [RC] PER UNIT ROUTINE 12/27/19 09:00 Labetalol [Normodyne] 100 mg PO BID - Assessment Assessment:: 29yo s/p at 37w2d, PPD#1 - Plan Plan:: 1. Routine care. 2. CHTN - Will hold labetalol given hypotension overnight and normal BP this morning. Will restart if BP sustained >150/90. Patient will monitor BP at home and notify clinic if >140-150s/80-90s. 3. Anemia - Continue oral iron. 4. History of gastric bypass 5. Plan for discharge home at 24 hours if infant cleared by face and fill packer. Reviewed discharge instructions.
[2019-12-27] MEDS ORDERED: Labetalol 100 MG Tab PO SCH (09:00)
== END 2019-12-27 23:20 | disposition home or self-care (01) | DRG 560 ==
LOC: MW.OB 19:14 → OBSVTOIN 12-26 19:14 → MW.OB 12-27 00:01
PROVIDERS: ADMIT Obstetrics & Gynecology; ATTEND Obstetrics & Gynecology
PROC: 10E0XZZ Delivery of Products of Conception, External Approach (ICD-10-PCS; principal; 2019-12-26)
PROC: 10907ZC Drainage of Amniotic Fluid, Therapeutic from Products of Conception, Via Natural or Artificial Opening (ICD-10-PCS; 2019-12-26)
PROC: 0KQM0ZZ Repair Perineum Muscle, Open Approach (ICD-10-PCS; 2019-12-26)
PROC: 3E0P7VZ Introduction of Hormone into Female Reproductive, Via Natural or Artificial Opening (ICD-10-PCS; 2019-12-26)
PROC: 3E0R3BZ Introduction of Anesthetic Agent into Spinal Canal, Percutaneous Approach (ICD-10-PCS; 2019-12-26)
DX: O13.4 Gestational [pregnancy-induced] hypertension without significant proteinuria, complicating childbirth (principal); O99.824 Streptococcus B carrier state complicating childbirth; O99.02 Anemia complicating childbirth; D64.9 Anemia, unspecified; Z37.0 Single live birth; Z11.59 Encounter for screening for other viral diseases; Z3A.37 37 weeks gestation of pregnancy; O70.1 Second degree perineal laceration during delivery
CPT/HCPCS: 36415; 51702; 59025; 59409; 80053; 82570; 84156; 84560; 85014; 85018; 85027; 86592; 86850; 86900; 86901; A9270-GY; J0290; J2590; J7050; J7120; U0002

== ENCOUNTER 2021-10-26 17:26 | Observation (INO) | payer BC ==
[2021-10-26] MEDS ORDERED: Labetalol 100 MG Tab PO ONE (18:30)
[2021-10-26] MEDS: Betamethasone Acetate/Betamethasone Sod Phosphate 30 MG/5 ML MDV IM ONE (18:30)
[2021-10-26 19:52] LABS: BLOOD UREA NITROGEN,BUN 5 mg/dL (7.0-18.0); CARBON DIOXIDE,CO2 17.9 mmol/L (21.0-32.0); CHLORIDE,CL 104 mmol/L (98-107); GLUCOSE RANDOM 82 mg/dL (74-106); POTASSIUM,K 3.8 mmol/L (3.5-5.1); SODIUM,NA 136 mmol/L (136-145)
[2021-10-26] MEDS ORDERED: NIFEdipine 30 MG Tab.ER PO ONE (20:40)
[2021-10-26] MEDS: Acetaminophen 500 MG Tab PO PRN (20:58)
[2021-10-27] MEDS: Acetaminophen 500 MG Tab PO PRN (09:00)
[2021-10-27] MEDS: Labetalol 100 MG Tab PO SCH ×2 (09:02→14:03)
[2021-10-27 09:55] LABS: BLOOD UREA NITROGEN,BUN 6 mg/dL (7.0-18.0); CARBON DIOXIDE,CO2 19.3 mmol/L (21.0-32.0); CHLORIDE,CL 101 mmol/L (98-107); GLUCOSE RANDOM 110 mg/dL (74-106); SODIUM,NA 133 mmol/L (136-145)
[2021-10-27] MEDS ORDERED: NIFEdipine 30 MG Tab.ER PO SCH (17:00)
[2021-10-27] MEDS ORDERED: Betamethasone Acetate/Betamethasone Sod Phosphate 30 MG/5 ML MDV IM ONE (18:34)
[2021-10-27] MEDS: Betamethasone Acetate/Betamethasone Sod Phosphate 30 MG/5 ML MDV IM ONE (18:39)
== END 2021-10-27 19:00 | disposition home or self-care (01) ==
LOC: MW.OB 17:26 → MW.OBCHECK 17:26 → MW.OB 20:41 → MW.OBCHECK 22:59
PROVIDERS: ADMIT Obstetrics & Gynecology; ATTEND Obstetrics & Gynecology
DX: O10.913 Unspecified pre-existing hypertension complicating pregnancy, third trimester (principal); O99.891 Other specified diseases and conditions complicating pregnancy; H54.7 Unspecified visual loss; Z88.6 Allergy status to analgesic agent; Z88.5 Allergy status to narcotic agent; Z79.82 Long term (current) use of aspirin; Z79.899 Other long term (current) drug therapy; Z3A.34 34 weeks gestation of pregnancy
CPT/HCPCS: 36415; 59025; 80053; 81003; 85027; A9270-GY; G0378; J0702

== ENCOUNTER 2021-11-15 00:10 | Inpatient (IN) | payer BC ==
[2021-11-15] MEDS ORDERED: Terbutaline 1 MG/ML SDV SUBCUT PRN (00:17)
[2021-11-15] MEDS ORDERED: Lidocaine 1% 50 ML MDV INJECT PRN (00:18)
[2021-11-15] MEDS ORDERED: Carboprost Tromethamine 250 MCG/1 ML Amp IM PRN (00:18)
[2021-11-15] MEDS ORDERED: Methylergonovine 0.2 MG/1 ML Amp IM PRN (00:18)
[2021-11-15] MEDS ORDERED: Sodium Chloride 0.9% 10 ML Syringe FLUSH PRN ×2 (00:18→06:39)
[2021-11-15] MEDS ORDERED: Butorphanol 1 MG/ML SDV IVPUSH PRN (00:18)
[2021-11-15] MEDS ORDERED: Water For Irrigation,Sterile 1,000 ML Container IRR PRN (00:18)
[2021-11-15] MEDS ORDERED: Misoprostol 200 MCG Tab PO PRN (00:18)
[2021-11-15] MEDS ORDERED: Ondansetron 4 MG/2 ML SDV IVPUSH PRN (00:18)
[2021-11-15] MEDS ORDERED: Sodium Chloride 0.9% 20 ML SDV IV PRN ×2 (00:18→06:39)
[2021-11-15] MEDS ORDERED: Sodium Chloride 0.9% 2.5 ML Syringe FLUSH PRN ×2 (00:18→06:39)
[2021-11-15] MEDS ORDERED: Tranexamic Acid 1,000 MG in Sodium Chloride 0.9% 100 ML IV PRN (00:18)
[2021-11-15] MEDS ORDERED: Oxytocin/0.9 % Sodium Chloride 30 UNIT/500 ML BAG IV SCH (00:30)
[2021-11-15] MEDS ORDERED: Lactated Ringers 1,000 ML IV SCH (00:30)
[2021-11-15] MEDS ORDERED: Ampicillin 2 GM in Sodium Chloride 0.9% 100 ML IV SCH (00:45)
[2021-11-15] MEDS: Acetaminophen 500 MG Tab PO PRN ×3 (01:15→14:21)
[2021-11-15] MEDS ORDERED: Ampicillin 2 GM in Sodium Chloride 0.9% 100 ML IV ONE (01:45)
[2021-11-15 02:10] LABS: BLOOD UREA NITROGEN,BUN 10 mg/dL (7.0-18.0); CARBON DIOXIDE,CO2 18.5 mmol/L (21.0-32.0); CHLORIDE,CL 104 mmol/L (98-107); ESTIMATED GFR > 60.0 ml/min; GLUCOSE RANDOM 96 mg/dL (74-106); POTASSIUM,K 4.1 mmol/L (3.5-5.1); SODIUM,NA 134 mmol/L (136-145)
[2021-11-15] MEDS: Labetalol 100 MG/20 ML MDV IVPUSH PRN ×4 (05:45→18:28)
[2021-11-15] MEDS: Ampicillin 1 GM in Sodium Chloride 0.9% 50 ML IV SCH ×3 (06:10→14:20)
[2021-11-15] MEDS ORDERED: Labetalol 100 MG Tab PO SCH (06:35)
[2021-11-15] MEDS ORDERED: Magnesium Sulfate/Water 4 GM in Premix Bag 1 BAG IV ONE (06:39)
[2021-11-15] MEDS ORDERED: Calcium Gluconate 10% 1 GM/10 ML SDV IV PRN (06:39)
[2021-11-15] MEDS ORDERED: Magnesium Sulfate/Water 100 ML ONE (07:02)
[2021-11-15] MEDS: Magnesium Sulfate/Water 20 GM/500 ML BAG IV SCH ×2 (07:28→17:04)
[2021-11-15] MEDS ORDERED: Dexmedetomidine 200 MCG/2 ML SDV ONE (10:16)
[2021-11-15] MEDS ORDERED: ePHEDrine 50 MG/ML SDV IVPUSH PRN (10:34)
[2021-11-15] MEDS ORDERED: Ropivacaine/PF 400 MG/200 ML PCA EPIDUR SCH (10:45)
[2021-11-15] MEDS ORDERED: Ropivacaine HCl/PF 400 MG in Premix Bag 1 BAG EPIDUR SCH (10:45)
[2021-11-15] MEDS ORDERED: Ropivacaine/PF 400 MG/200 ML PCA EPIDUR ONE (15:59)
[2021-11-15] MEDS ORDERED: Sodium Chloride 0.9% 100 ML ONE (17:55)
[2021-11-15] MEDS: Oxytocin/0.9 % Sodium Chloride 30 UNIT/500 ML BAG IV SCH ×2 (18:34→21:21)
[2021-11-15 18:37] LABS: BLOOD UREA NITROGEN,BUN 8 mg/dL (7.0-18.0); CARBON DIOXIDE,CO2 20.7 mmol/L (21.0-32.0); CHLORIDE,CL 103 mmol/L (98-107); GLUCOSE RANDOM 114 mg/dL (74-106); POTASSIUM,K 4.1 mmol/L (3.5-5.1); SODIUM,NA 134 mmol/L (136-145)
[2021-11-15 18:40] LABS: ESTIMATED GFR > 60.0 ml/min
[2021-11-15] MEDS ORDERED: Lanolin 100% Cream 7 GM Tube TOP PRN (19:46)
[2021-11-15] MEDS ORDERED: Docusate Sodium 100 MG Cap PO PRN (19:46)
[2021-11-15] MEDS ORDERED: Witch Hazel Medicated Pads 40/Jar TOP PRN (19:46)
[2021-11-15] MEDS ORDERED: Ibuprofen 800 MG Tab PO PRN (19:46)
[2021-11-15] MEDS ORDERED: Bisacodyl 10 MG Supp RECTAL PRN (19:46)
[2021-11-15] MEDS ORDERED: oxyCODONE 5 MG Tab PO PRN (19:46)
[2021-11-15] MEDS ORDERED: Benzocaine/Menthol 20%-0.5% Spray 78 GM Cannister TOP PRN (19:46)
[2021-11-15] MEDS ORDERED: Acetaminophen 500 MG Tab PO PRN (19:46)
[2021-11-15] MEDS ORDERED: Ibuprofen 400 MG Tab PO PRN (19:46)
[2021-11-15] MEDS: Labetalol 100 MG Tab PO SCH (21:02)
[2021-11-16] MEDS: Oxytocin/0.9 % Sodium Chloride 30 UNIT/500 ML BAG IV SCH ×4 (01:05→12:28)
[2021-11-16] MEDS: Magnesium Sulfate/Water 20 GM/500 ML BAG IV SCH ×2 (02:56→13:08)
[2021-11-16] MEDS: Acetaminophen 500 MG Tab PO PRN ×2 (06:23→19:56)
[2021-11-16 07:17] LABS: BLOOD UREA NITROGEN,BUN 9 mg/dL (7.0-18.0); GLUCOSE RANDOM 83 mg/dL (74-106)
[2021-11-16 07:40] LABS: CHLORIDE,CL 104 mmol/L (98-107); POTASSIUM,K 3.8 mmol/L (3.5-5.1); SODIUM,NA 136 mmol/L (136-145)
[2021-11-16 07:43] LABS: ESTIMATED GFR > 60.0 ml/min
[2021-11-16] MEDS: Labetalol 100 MG Tab PO SCH (08:23)
[2021-11-16] MEDS ORDERED: Labetalol 100 MG Tab PO ONE (18:34)
[2021-11-16] MEDS ORDERED: Labetalol 100 MG Tab PO SCH (21:00)
[2021-11-17] MEDS ORDERED: Labetalol 100 MG Tab PO SCH (16:00)
== END 2021-11-17 16:00 | disposition home or self-care (01) | DRG 560 ==
LOC: MW.OBCHECK 00:10 → MW.OB 00:18 → OBSVTOIN 19:46 → MW.OB 20:45
PROVIDERS: ADMIT Obstetrics & Gynecology; ATTEND Obstetrics & Gynecology
PROC: 10E0XZZ Delivery of Products of Conception, External Approach (ICD-10-PCS; principal; 2021-11-15)
PROC: 3E0R3BZ Introduction of Anesthetic Agent into Spinal Canal, Percutaneous Approach (ICD-10-PCS; 2021-11-15)
PROC: 10E0XZZ Delivery of Products of Conception, External Approach (ICD-10-PCS; 2021-11-15)
PROC: 3E033VJ Introduction of Other Hormone into Peripheral Vein, Percutaneous Approach (ICD-10-PCS; 2021-11-15)
DX: O14.14 Severe pre-eclampsia complicating childbirth (principal); Z3A.36 36 weeks gestation of pregnancy; Z37.0 Single live birth; O72.1 Other immediate postpartum hemorrhage; O99.824 Streptococcus B carrier state complicating childbirth; O99.02 Anemia complicating childbirth; D64.9 Anemia, unspecified; Z20.822 Contact with and (suspected) exposure to COVID-19
CPT/HCPCS: 01967; 36415; 51702; 59025; 59409; 80053; 81003; 82803; 83615; 83735; 84550; 85014; 85018; 85027; 85384; 85610; 86592; 86850; 86900; 86901; 86920; A9270-GY; J0290; J2370; J2405; J2590; J2795; J3475; J3490; J7120; U0002